=== PATIENT | female | born 1970 | race Caucasian/White ===

== ENCOUNTER 2017-11-19 12:50 | Observation (INO) | payer OTHER ==
[2017-11-19] MEDS ORDERED: NS 1,000 ML IV ONE ×2 (13:29→15:10)
--- NOTE | 2017-11-19 13:30 | EDPHY ---
H & P Time Seen by Provider: 11/19/17 13:29 HPI/ROS: CHIEF COMPLAINT: Abdominal pain HISTORY OF PRESENT ILLNESS: Patient is visiting from [place] as part of the [email or web address]. Last night she had diarrhea followed by some abdominal cramping which got worse this morning. She had coffee and an apple around 10: 00 a.m. And then 11:00 a.m. The pain recurred and is now in the right lower quadrant. Moderate at rest and much worse with breathing movement or any palpation. Associated with anorexia and decreased appetite but no further diarrhea. No fever or chills. No recent injury or trauma. Pain does not radiate. REVIEW OF SYSTEMS: Eye: no change in vision ENT: no sore throat Cardiac: no chest pain or syncope Pulmonary: no cough or SOB Abdomen: HPI Musculoskeletal: no back pain Skin: no rash Neuro: no headache Constitutional: no fever : no urinary symptoms A comprehensive 10 point review of systems is otherwise negative aside from elements mentioned in the history of present illness. PAST MEDICAL HISTORY: Dermoid cyst removal 2000, right foot surgery, uterine ablation 2014 Social history: Visiting from [place] as part of the [employer], plays the clarinet General Appearance: Alert and conversant, cooperative. Eyes: No scleral icterus. ENT, Mouth: Normal mucous membranes. Respiratory: Normal respiratory effort, breath sounds equal, lungs are clear to auscultation. Cardiovascular: Regular rate and rhythm. Gastrointestinal: The right lower quadrant tenderness with palpation. Decreased bowel sounds. Neurological: Alert, face symmetric, normal motor and sensory in extremities. Skin: Warm and dry, no rashes. Musculoskeletal: No peripheral edema. Psychiatric: Not agitated. Emergency Department course/MDM: Declined pain medication or antiemetics. CT scanning discussed and consented to evaluate for appendicitis. 1500: Results discussed with the patient, she knows she has a previous renal cyst, will give her a copy of the CT to take home so she can compared to previous imaging studies. Warned she needs follow-up with previous studies to evaluate for possibility of cyst versus cancer. Diagnosis of appendicitis discussed, IV Invanz 1 g, NPO and surgical consultation. Smoking Status: Never smoked Constitutional: Initial Vital Signs Temperature (C) 37.4 C 11/19/17 12:55 Heart Rate 110 H 11/19/17 12:55 Respiratory Rate 16 11/19/17 12:55 Blood Pressure 133/100 H 11/19/17 12:55 O2 Sat (%) 92 11/19/17 12:55 O2 Delivery Mode Room Air Allergies/Adverse Reactions: tramadol Allergy (Mild, Verified 11/19/17 15:48) Itching Home Medications: Medication Instructions Recorded Acetaminophen [Tylenol ES 500 mg 500 mg PO Q6 PRN 11/19/17 (*)] Amitriptyline HCl [Elavil 10 mg 10 mg PO HS 11/19/17 (*)] Ascorbic Acid [Vitamin C 250 mg 250 mg PO DAILY 11/19/17 (*)] Cholecalciferol Vit D3 [Vitamin D3 1,000 units PO DAILY 11/19/17 (*)] Lidocaine 4%/Menthol 1% [Icy Hot 1 patch TD DAILY PRN 11/19/17 Lidocaine/Menthol 4%/1% Patch (*)] celeCOXIB [Celebrex (*)] 200 mg PO DAILY 11/19/17 Medical Decision Making - Diagnostics Imaging Results: Imaging Impressions Abdomen CT 11/19/17 14:08 Impression: 1. Acute appendicitis with thickening up to 20 mm, and periappendiceal inflammatory fluid and edema. 2. Right kidney lateral cortical 17 x 14 mm solid-appearing lesion suspicious for early renal cell carcinoma. Recommend noncontrast CT kidneys for further evaluation in order to differentiate hyperdense cyst versus renal cell carcinoma. Recommend urology consult. 3. No drainable abscesses or pneumoperitoneum. Findings and recommendations discussed with Emergency Department physician, Dr. Jesús Simmons at 1500 hours on November 19, 2017. Final report concurs with initial preliminary interpretation. A test result has been communicated to a licensed care provider and documented in the [facility] Critical Result system on 11/19/2017 15:09, Message ID [id number]. CT abdomen and pelvis shows appendicitis, also has renal mass Imaging: Discussed imaging studies w/ call taker Radiologist, I viewed and interpreted images myself Differential Diagnosis: Differential diagnosis considered for abdominal pain including but not limited to ovarian cyst or torsion, appendicitis, cholecystitis, pancreatitis, gastritis and urinary tract infection. Consult/Admit Bed Type: Dr. Dominguez 1510 - Data Points Laboratory Results: Laboratory Results 11/19/17 13:30 11/19/17 13:30 11/19/17 11/19/17 11/19/17 13:30 13:30 13:30 WBC RBC Hgb Hct MCV MCH MCHC RDW Plt Count MPV Neut % (Auto) Lymph % (Auto) [place] % (Auto) Eos % (Auto) Baso % (Auto) Nucleat RBC Rel Count Absolute Neuts (auto) Absolute Lymphs (auto) Absolute Monos (auto) Absolute Eos (auto) Absolute Basos (auto) Absolute Nucleated RBC Immature Gran % Immature Gran # Sodium 143 mEq/L mEq/L (135-145) Potassium 3.9 mEq/L mEq/L (3.5-5.2) Chloride 105 mEq/L mEq/L (97-110) Carbon Dioxide 26 mEq/l mEq/l (22-31) Anion Gap 12 mEq/L mEq/L (8-16) BUN 8 mg/dL mg/dL (7-23) Creatinine 0.6 mg/dL mg/dL (0.6-1.0) Estimated GFR > 60 Glucose 99 mg/dL mg/dL (70-100) Calcium 9.6 mg/dL mg/dL (8.5-10.4) Beta HCG, Qual NEGATIVE Urine Color PALE YELLOW Urine Appearance HAZY Urine pH 8.0 H (5.0-7.5) Ur Specific [place] 1.006 (1.002-1.030) Urine Protein NEGATIVE (NEGATIVE) Urine Ketones TRACE H (NEGATIVE) Urine Blood 1+ H (NEGATIVE) Urine Nitrate NEGATIVE (NEGATIVE) Urine Bilirubin NEGATIVE (NEGATIVE) Urine Urobilinogen NEGATIVE EU EU (0.2-1.0) Ur Leukocyte Esterase NEGATIVE (NEGATIVE) Urine RBC 1-3 /hpf /hpf (0-3) Urine WBC 1-3 /hpf /hpf (0-3) Ur Epithelial Cells 1+ /lpf /lpf (NONE-1+) Urine Bacteria 1+ /hpf H /hpf (NONE SEEN) Urine Glucose NEGATIVE (NEGATIVE) 11/19/17 13:30 WBC 17.13 10^3/uL H 10^3/uL (3.80-9.50) RBC 4.62 10^6/uL 10^6/uL (4.18-5.33) Hgb 14.2 g/dL g/dL (12.6-16.3) Hct 42.3 % % (38.0-47.0) MCV 91.6 fL fL (81.5-99.8) MCH 30.7 pg pg (27.9-34.1) MCHC 33.6 g/dL g/dL (32.4-36.7) RDW 12.5 % % (11.5-15.2) Plt Count 308 10^3/uL 10^3/uL (150-400) MPV 11.1 fL fL (8.7-11.7) Neut % (Auto) 78.3 % H % (39.3-74.2) Lymph % (Auto) 13.3 % L % (15.0-45.0) [place] % (Auto) 7.2 % % (4.5-13.0) Eos % (Auto) 0.2 % L % (0.6-7.6) Baso % (Auto) 0.5 % % (0.3-1.7) Nucleat RBC Rel Count 0.0 % % (0.0-0.2) Absolute Neuts (auto) 13.43 10^3/uL H 10^3/uL (1.70-6.50) Absolute Lymphs (auto) 2.27 10^3/uL 10^3/uL (1.00-3.00) Absolute Monos (auto) 1.23 10^3/uL H 10^3/uL (0.30-0.80) Absolute Eos (auto) 0.04 10^3/uL 10^3/uL (0.03-0.40) Absolute Basos (auto) 0.08 10^3/uL 10^3/uL (0.02-0.10) Absolute Nucleated RBC 0.00 10^3/uL 10^3/uL (0-0.01) Immature Gran % 0.5 % % (0.0-1.1) Immature Gran # 0.08 10^3/uL 10^3/uL (0.00-0.10) Sodium Potassium Chloride Carbon Dioxide Anion Gap BUN Creatinine Estimated GFR Glucose Calcium Beta HCG, Qual Urine Color Urine Appearance Urine pH Ur Specific [place] Urine Protein Urine Ketones Urine Blood Urine Nitrate Urine Bilirubin Urine Urobilinogen Ur Leukocyte Esterase Urine RBC Urine WBC Ur Epithelial Cells Urine Bacteria Urine Glucose Medications Given: Discontinued Medications Bupivacaine HCl (Sensorcaine 0.25% Sdv) Confirm Administered Dose 30 ml .ROUTE .Elysia-MED ONE Stop: 11/19/17 16:42 Last Admin: 11/19/17 17:50 Dose: 30 ml Ertapenem (Invanz) 1 gm IVP EDNOW ONE PRN Reason: Protocol Stop: 11/19/17 15:11 Last Admin: 11/19/17 15:49 Dose: 1 gm Fentanyl (Sublimaze) 25 - 100 mcg IVP Q5M PRN PRN Reason: PACU, IMMEDIATE Pain control Stop: 11/19/17 18:56 Last Admin: 11/19/17 19:09 Dose: 50 mcg Sodium Chloride (Ns) 1,000 mls @ 0 mls/hr IV ONCE ONE PRN Reason: Wide Open Stop: 11/19/17 13:30 Last Admin: 11/19/17 13:34 Dose: 1,000 mls Sodium Chloride (Ns) 1,000 mls @ 0 mls/hr IV EDNOW ONE; Wide Open PRN Reason: Protocol Stop: 11/19/17 15:11 Last Admin: 11/19/17 15:52 Dose: 1,000 mls Ondansetron HCl (Zofran) 4 mg IVP ONCE ONE Stop: 11/19/17 15:51 Last Admin: 11/19/17 15:52 Dose: 4 mg Departure - Departure Disposition: [facility] Acute Clinical Impression: Acute appendicitis Qualifiers: Acute appendicitis type: with localized peritonitis Qualified Code(s): K35.3 - Acute appendicitis with localized peritonitis Condition: Good
[2017-11-19 13:44] LABS: PLATELET COUNT 308 10^3/uL (150-400)
[2017-11-19] MEDS ORDERED: IOPAMIDOL (ISOVUE-300) 100 ML BTL ONE (14:19)
[2017-11-19] MEDS ORDERED: ERTAPENEM 1 GM VIAL IVP ONE (15:10)
[2017-11-19] MEDS ORDERED: ONDANSETRON 4 MG/2 ML VIAL ONE ×2 (15:47→17:51)
[2017-11-19] MEDS ORDERED: ONDANSETRON 4 MG/2 ML VIAL IVP ONE ×2 (15:50→16:06)
[2017-11-19] MEDS ORDERED: LR 1,000 ML IV SCH ×2 (16:00→18:30)
[2017-11-19] MEDS ORDERED: DEXAMETHASONE 4 MG/ML VIAL IVP ONE (16:06)
[2017-11-19] MEDS ORDERED: HYDROmorphONE/DILAUDID 1 MG/ML INJ IVP PRN (16:11)
[2017-11-19] MEDS ORDERED: LIDOCAINE 4%/MENTHOL 1% PATCH TD PRN (16:12)
--- NOTE | 2017-11-19 16:17 | PDGENHP ---
History and Physical - Chief Complaint abdominal pain - History of Present Illness 47 y/o femalewith one day history of abd pain preceeded by an episode of diarrhea. Pain localized to the RLQ and she presented to the [facility] ED for evaluation. She was seen by Dr. Jesús Glover and surgical consultation was requested. History Information - Allergies/Home Medication List Allergies/Adverse Reactions: tramadol Allergy (Mild, Verified 11/19/17 15:48) Itching Home Medications: Acetaminophen [Tylenol ES 500 mg (*)] 500 mg PO Q6 PRN 11/19/17 [Last Taken 12/04] Amitriptyline HCl [Elavil 10 mg (*)] 10 mg PO HS 11/19/17 [Last Taken 11/18/17] Ascorbic Acid [Vitamin C 250 mg (*)] 250 mg PO DAILY 11/19/17 [Last Taken ] Cholecalciferol Vit D3 [Vitamin D3 (*)] 1,000 units PO DAILY 11/19/17 [Last Taken 11/18/17] Lidocaine 4%/Menthol 1% [Icy Hot Lidocaine/Menthol 4%/1% Patch (*)] 1 patch TD DAILY PRN 11/19/17 [Last Taken 1 Month Ago ~10/22/17] celeCOXIB [Celebrex (*)] 200 mg PO DAILY 11/19/17 [Last Taken 11/18/17] I have personally reviewed and updated: family history, medical history, social history, surgical history - Surgical History Additional surgical history: laparoscopic dermoid cyst resection/uterine ablation/bunion surgery/total thyroidectomy - Social History Smoking Status: Never smoked Alcohol Use: Rarely Drug Use: None Review of Systems Review of Systems: Cardiac: Reports: no symptoms Respiratory: Reports: no symptoms Gastrointestinal: Reports: abdominal pain, diarrhea Genitourinary: Reports: no symptoms Physical Exam Physical Exam: Temp Pulse Resp BP Pulse Ox 36.7 C 83 16 146/83 H 96 11/19/17 15:09 11/19/17 15:09 11/19/17 15:09 11/19/17 15:09 11/19/17 15:09 Constitutional: no apparent distress Eyes: anicteric sclera Cardiovascular: regular rate and rhythym, no murmur, rub, or gallop Respiratory: no respiratory distress, no rales or rhonchi, clear to auscultation Gastrointestinal: tenderness (RLQ to palpation and percussion), other ( hypoactive bowel sounds, Rovsing's sign negative) Skin: warm Musculoskeletal: full muscle strength Neurologic: AAOx3 Psychiatric: interacting appropriately, not anxious Lymph, Heme, Immunologic: no cervical LAD, no supraclavicular LAD Lab Data & Imaging Review 11/19/17 13:30 11/19/17 13:30 WBC 17.13 10^3/uL (3.80-9.50) H 11/19/17 13:30 RBC 4.62 10^6/uL (4.18-5.33) 11/19/17 13:30 Hgb 14.2 g/dL (12.6-16.3) 11/19/17 13:30 Hct 42.3 % (38.0-47.0) 11/19/17 13:30 MCV 91.6 fL (81.5-99.8) 11/19/17 13:30 MCH 30.7 pg (27.9-34.1) 11/19/17 13:30 MCHC 33.6 g/dL (32.4-36.7) 11/19/17 13:30 RDW 12.5 % (11.5-15.2) 11/19/17 13:30 Plt Count 308 10^3/uL (150-400) 11/19/17 13:30 MPV 11.1 fL (8.7-11.7) 11/19/17 13:30 Neut % (Auto) 78.3 % (39.3-74.2) H 11/19/17 13:30 Lymph % (Auto) 13.3 % (15.0-45.0) L 11/19/17 13:30 [place] % (Auto) 7.2 % (4.5-13.0) 11/19/17 13:30 Eos % (Auto) 0.2 % (0.6-7.6) L 11/19/17 13:30 Baso % (Auto) 0.5 % (0.3-1.7) 11/19/17 13:30 Nucleat RBC Rel Count 0.0 % (0.0-0.2) 11/19/17 13:30 Absolute Neuts (auto) 13.43 10^3/uL (1.70-6.50) H 11/19/17 13:30 Absolute Lymphs (auto) 2.27 10^3/uL (1.00-3.00) 11/19/17 13:30 Absolute Monos (auto) 1.23 10^3/uL (0.30-0.80) H 11/19/17 13:30 Absolute Eos (auto) 0.04 10^3/uL (0.03-0.40) 11/19/17 13:30 Absolute Basos (auto) 0.08 10^3/uL (0.02-0.10) 11/19/17 13:30 Absolute Nucleated RBC 0.00 10^3/uL (0-0.01) 11/19/17 13:30 Immature Gran % 0.5 % (0.0-1.1) 11/19/17 13:30 Immature Gran # 0.08 10^3/uL (0.00-0.10) 11/19/17 13:30 Sodium 143 mEq/L (135-145) 11/19/17 13:30 Potassium 3.9 mEq/L (3.5-5.2) 11/19/17 13:30 Chloride 105 mEq/L (97-110) 11/19/17 13:30 Carbon Dioxide 26 mEq/l (22-31) 11/19/17 13:30 Anion Gap 12 mEq/L (8-16) 11/19/17 13:30 BUN 8 mg/dL (7-23) 11/19/17 13:30 Creatinine 0.6 mg/dL (0.6-1.0) 11/19/17 13:30 Estimated GFR > 60 11/19/17 13:30 Glucose 99 mg/dL (70-100) 11/19/17 13:30 Calcium 9.6 mg/dL (8.5-10.4) 11/19/17 13:30 Beta HCG, Qual NEGATIVE 11/19/17 13:30 Urine Color PALE YELLOW 11/19/17 13:30 Urine Appearance HAZY 11/19/17 13:30 Urine pH 8.0 (5.0-7.5) H 11/19/17 13:30 Ur Specific [place] 1.006 (1.002-1.030) 11/19/17 13:30 Urine Protein NEGATIVE (NEGATIVE) 11/19/17 13:30 Urine Ketones TRACE (NEGATIVE) H 11/19/17 13:30 Urine Blood 1+ (NEGATIVE) H 11/19/17 13:30 Urine Nitrate NEGATIVE (NEGATIVE) 11/19/17 13:30 Urine Bilirubin NEGATIVE (NEGATIVE) 11/19/17 13:30 Urine Urobilinogen NEGATIVE EU (0.2-1.0) 11/19/17 13:30 Ur Leukocyte Esterase NEGATIVE (NEGATIVE) 11/19/17 13:30 Urine RBC 1-3 /hpf (0-3) 11/19/17 13:30 Urine WBC 1-3 /hpf (0-3) 11/19/17 13:30 Ur Epithelial Cells 1+ /lpf (NONE-1+) 11/19/17 13:30 Urine Bacteria 1+ /hpf (NONE SEEN) H 11/19/17 13:30 Urine Glucose NEGATIVE (NEGATIVE) 11/19/17 13:30 Visualized and Interpreted imaging results: Yes Interpretation: CT shows dilated appendix/appendicolith Assessment & Plan Assessment: Acute appendicitis/appendicolith surgical hypothyroidism Plan: We discussed options including non-operative treatment with antibiotics vs. appendectomy. I recommended lap appendectomy and she agrees. We discussed surgery, expected recovery and risks. Informed consent was obtained. Ertapenam 1 gm IVPB was ordered in the ED. Surgery time TBD
[2017-11-19] MEDS ORDERED: HYDROmorphONE/DILAUDID 2 MG/ML INJ IVP PRN ×2 (16:30→18:25)
[2017-11-19] MEDS ORDERED: BUPIVACAINE 0.25% 30 ML SDV ONE (16:41)
--- NOTE | 2017-11-19 17:00 | ASMTLACE ---
SOHAIL Acuity / Level of Answers: Yes Care: Did the patient have an inpatient admission? # of Emergency department Answers: 0 visits in the last 6 months Score: 3 Date Signed: 11/19/2017 05:00 PM Electronically Signed By:Lizzy Carlton RN
[2017-11-19] MEDS ORDERED: ROCURONIUM 50 MG/5 ML VIAL ONE ×2 (17:20→17:51)
[2017-11-19] MEDS ORDERED: MIDAZOLAM 2 MG/2 ML VIAL ONE (17:20)
[2017-11-19] MEDS ORDERED: fentaNYL 100 MCG/2 ML INJ ONE ×2 (17:21→19:07)
[2017-11-19] MEDS ORDERED: PROPOFOL/EMULSION 500 MG/50 ML BOTTLE IV ONE (17:28)
--- NOTE | 2017-11-19 17:49 | PDANEPAE ---
ANE Past Medical History - Pulmonary History Hx Oxygen in Use at Home: No Hx Sleep Apnea: No - Endocrine History Hx Diabetes: No ANE Review of Systems Review of Systems: ANE Patient History - Allergies Allergies/Adverse Reactions: tramadol Allergy (Mild, Verified 11/19/17 15:48) Itching - Home Medications Home Medications: Acetaminophen [Tylenol ES 500 mg (*)] 500 mg PO Q6 PRN 11/19/17 [Last Taken 12/04] Amitriptyline HCl [Elavil 10 mg (*)] 10 mg PO HS 11/19/17 [Last Taken 11/18/17] Ascorbic Acid [Vitamin C 250 mg (*)] 250 mg PO DAILY 11/19/17 [Last Taken ] Cholecalciferol Vit D3 [Vitamin D3 (*)] 1,000 units PO DAILY 11/19/17 [Last Taken 11/18/17] Lidocaine 4%/Menthol 1% [Icy Hot Lidocaine/Menthol 4%/1% Patch (*)] 1 patch TD DAILY PRN 11/19/17 [Last Taken 1 Month Ago ~10/22/17] celeCOXIB [Celebrex (*)] 200 mg PO DAILY 11/19/17 [Last Taken 11/18/17] - NPO status NPO Since - Liquids (Date): 11/19/17 NPO Since - Liquids (Time): 10:00 NPO Since - Solids (Date): 11/19/17 NPO Since - Solids (Time): 10:00 - Smoking Hx Smoking Status: Never smoked - Alcohol Use Alcohol Use: Rarely ANE Labs/Vital Signs - Labs Result Diagrams: 11/19/17 13:30 11/19/17 13:30 - Vital Signs Blood Pressure: 129/83 Heart Rate: 80 Respiratory Rate: 16 O2 Sat (%): 96 Height: 157.48 cm Weight: 68.039 kg ANE Physical Exam - Airway Neck exam: FROM Mallampati Score: Class 1 Mouth exam: normal dental/mouth exam - Pulmonary Pulmonary: no respiratory distress, no rales or rhonchi, clear to auscultation - Cardiovascular Cardiovascular: regular rate and rhythym, no murmur, rub, or gallop - ASA Status ASA Status: II, E ANE Anesthesia Plan Anesthesia Plan: general endotracheal anesthesia
[2017-11-19] MEDS ORDERED: METOCLOPRAMIDE 10 MG/2 ML VIAL ONE (17:51)
[2017-11-19] MEDS ORDERED: LIDOCAINE 2% 5 ML SDV ONE (17:51)
[2017-11-19] MEDS ORDERED: RANITIDINE 50 MG/2 ML VIAL ONE (17:51)
[2017-11-19] MEDS ORDERED: KETOROLAC 30 MG/1 ML SDV ONE (17:51)
[2017-11-19] MEDS ORDERED: SUGAMMADEX SODIUM 200 MG/2 ML VIAL IVP ONE (17:51)
[2017-11-19] MEDS ORDERED: DEXAMETHASONE 4 MG/ML VIAL IVP PRN (17:55)
[2017-11-19] MEDS ORDERED: METOCLOPRAMIDE 10 MG/2 ML VIAL IVP PRN (17:55)
[2017-11-19] MEDS ORDERED: ONDANSETRON 4 MG/2 ML VIAL IVP PRN (17:55)
[2017-11-19] MEDS ORDERED: LR 500 ML IV PRN (17:55)
[2017-11-19] MEDS ORDERED: fentaNYL 100 MCG/2 ML INJ IVP PRN (17:55)
[2017-11-19] MEDS ORDERED: PROMETHAZINE HCL 25 MG/ML INJ IVP PRN (17:55)
[2017-11-19] MEDS ORDERED: ALBUTEROL 3 ML DEYVIAL IH PRN (17:55)
[2017-11-19] MEDS ORDERED: NALOXONE HCL 0.4 MG/ML INJ IVP PRN (17:55)
[2017-11-19] MEDS ORDERED: MEPERIDINE 25 MG/ML SYR IVP PRN (17:55)
[2017-11-19] MEDS ORDERED: TEMAZEPAM 15 MG CAP PO PRN (18:25)
--- NOTE | 2017-11-19 18:25 | POSTOPPROG ---
Post Op Note Date of Operation: 11/19/17 Surgeon: Magdy Dominguez (, FACS) Anesthesiologist: Faith Gonzalez MD Anesthesia: GET(General Endotracheal) Pre-op Diagnosis: acute appendicits Post-op Diagnosis: same Procedure: lap appendectomy Findings: acute suppurative appendicitis Inf/Abcess present in the surg proc area at time of surgery?: Yes Depth: Organ Space Specimen(s): appendix
--- NOTE | 2017-11-19 18:26 | POSTANESTH ---
Post Anesthetic Evaluation Cardiovascular Status: Normal, Stable Respiratory Status: Normal, Stable Level of Consciousness/Mental Status: Mildly Sleepy, Arousable Pain Control: Adequate, Prn Tx Ordered Nausea/Vomiting Control: Adequate, Prn Tx Ordered Complications Possibly Related to Anesthesia: None Noted
--- NOTE | 2017-11-19 19:33 | GOP ---
[f rep st] OPERATIVE REPORT DATE OF OPERATION: 11/19/2017 SURGEON: Magdy Dominguez MD, [facility] ANESTHESIA: General endotracheal. Faith Gonzalez MD. PREOPERATIVE DIAGNOSIS: Acute appendicitis. POSTOPERATIVE DIAGNOSIS: Acute appendicitis. PROCEDURE PERFORMED: Laparoscopic appendectomy. FINDINGS: Acute suppurative appendicitis without perforation or gangrene. ESTIMATED BLOOD LOSS: 10 cc. DESCRIPTION OF PROCEDURE: After informed consent was obtained, the patient was brought to the operating room, and placed under general anesthesia. The abdomen was prepped and draped in the usual fashion. Before proceeding, a time- out and identification of the patient was performed. 0.25% Marcaine was used to infiltrate all incision sites. A longitudinal incision was made through the base of the umbilicus, and carried through the skin and subcutaneous tissues. Ventral traction was applied to the abdominal wall, and a Veress needle was introduced into the peritoneal cavity. Position was confirmed by saline infusion. The Veress needle was withdrawn, and replaced with a 5 mm bladeless trocar. A 0-degree scope was introduced, and the peritoneal cavity was visualized. Additional 5 mm port was placed in the suprapubic position, and left lower quadrant 12 mm port was placed. This allowed introduction of atraumatic grasping forceps. The appendix was not readily visible. There were some adhesions between the terminal ileum and the pelvic sidewall that were taken down, which allowed visualization of the appendix, and it appeared acutely suppurative, but without gangrene or alecia perforation. The patient's uterus appeared normal with a small subserosal fibroid on the dome, and the right ovary was intact along with the tube. The left ovary and tube were surgically absent from a prior dermoid cyst excision. The cecum and terminal ileum were rotated medially. This allowed the appendix to come into view. It was grasped and retracted anteriorly. The mesoappendix was dispatched with a Harmonic scalpel, and the appendix from the cecum with a single firing of the LENA stapler. The appendix was retrieved through the left lower quadrant port site using an Endopouch. The operative field appeared hemostatic. The left lower quadrant 12 mm port fascial defect was repaired with a transfascial closure needle and 0 Vicryl suture. The pneumoperitoneum was evacuated. The remaining ports were removed. The subcutaneous tissues were approximated with 3-0 Monocryl suture. The skin was closed with 4-0 Monocryl suture in a subcuticular fashion. Topical Dermabond was applied. Needle, sponge, and instrument counts were correct. COMPLICATIONS: None. /[id number]/MODL MTDD
[2017-11-19] MEDS ORDERED: HYDROCODONE/APAP 5/325 TAB ONE (19:59)
[2017-11-19] MEDS: HYDROCODONE/APAP 5/325 TAB PO PRN ×2 (19:59→22:45)
[2017-11-19] MEDS ORDERED: AMITRIPTYLINE HCL 10 MG TAB PO SCH (21:00)
[2017-11-20] MEDS: HYDROCODONE/APAP 5/325 TAB PO PRN ×3 (03:56→12:44)
[2017-11-20 04:25] VITALS: O2SAT 96
[2017-11-20 04:44] LABS: PLATELET COUNT 238 10^3/uL (150-400)
--- NOTE | 2017-11-20 06:38 | PDDCSUM ---
Discharge Summary Discharge Summary: DOA 11/19/17 DOD 11/20/17 DC Dx: appendicitis Procedure: lap appendectomy 11/19 Course: Tia presented with acute appendicitis and was brought to the OR for lap appendectomy. Her appendix was inflammed but not ruptured. She received jake- operative Ertapenam and had no fever after surgery. Her wbc came down from 17 to 10 post op. She felt improved and was treated for incisional pain. She was discharged the day after surgery and will spend the night in [place] before returning home to [place] tomorrow. We discussed activity, wound care and restrictions. She will call my office for any questions that arise and follow up with her PCP. DC Medications: [place] 5/325 #30 [place] S #30 she will resume her remaining medications per med recon form S MD Angelica, FACS
[2017-11-20 07:28] VITALS: BP 120/80; PULSE 76; RESP 16; TEMP 97.8
[2017-11-20] MEDS ORDERED: KETOROLAC 15 MG/1 ML SDV IVP ONE (08:00)
[2017-11-20] MEDS ORDERED: ERTAPENEM 1 GM VIAL IV SCH (09:00)
[2017-11-20] MEDS ORDERED: SENNOSIDES/DOCUSATE SODIUM TAB PO SCH (09:00)
[2017-11-20] MEDS ORDERED: ENOXAPARIN 40 MG/0.4 ML SYR SC SCH (09:00)
== END 2017-11-20 13:02 | disposition home or self-care (01) ==
LOC: F3E 19:02 → FOB 20:00
PROVIDERS: ADMIT Surgery; ATTEND Surgery
PROC: 0DTJ4ZZ Resection of Appendix, Percutaneous Endoscopic Approach (ICD-10-PCS; principal; 2017-11-19 19:00)
DX: K35.80 Unspecified acute appendicitis (principal); N28.9 Disorder of kidney and ureter, unspecified
CPT/HCPCS: 44970; 74177; 96361; 96374; 96375; 99285; G0378; J1335; J1650; J1885; J2250; J2405; J2704; J2765; J2780; J3010; Q9967